=== PATIENT | female | born 1995 | race Caucasian/White ===

== ENCOUNTER → 2023-10-20 | Outpatient (CLI) | payer OTHER, SELFPAY ==
[2023-10-20 17:36] LABS: Vitamin D,25 Hydroxy 35.6 ng/mL
[2023-10-20 17:41] LABS: T4 Free Direct 1.84 ng/dL (0.76-1.46); Thyroid Stim Hormone (TSH) 3.18 uIU/mL (0.358-3.74)
== END | disposition home or self-care (01) ==
LOC: LAB 16:32
PROVIDERS: PCP Family Medicine; Referring Provider Internal Medicine Endocrinology, Diabetes & Metabolism; Visit Provider Internal Medicine Endocrinology, Diabetes & Metabolism
DX: E03.9 Hypothyroidism, unspecified (principal); E55.9 Vitamin D deficiency, unspecified
CPT/HCPCS: 36415; 82306; 84439; 84443

== ENCOUNTER 2024-01-07 14:19 | Emergency (ER) | payer OTHER, SELFPAY ==
[2024-01-07 14:20] VITALS: BP 122/88; PULSE 76; RESP 18; TEMP 36.3; O2SAT 100; BMI 21.9
[2024-01-07 15:09] VITALS: BP 99/68; PULSE 75; RESP 12; O2SAT 99
--- NOTE | 2024-01-07 15:16 | EKG12_ITS ---
Test Reason : CP Blood Pressure : / mmHG Vent. Rate : 066 BPM Atrial Rate : 066 BPM P-R Int : 126 ms QRS Dur : 088 ms QT Int : 436 ms P-R-T Axes : 055 125 023 degrees QTc Int : 457 ms Normal sinus rhythm Right axis deviation Possible Right ventricular hypertrophy Abnormal ECG Confirmed by Edwin Prabhakar ([id number]), news editor CELIA SAGASTUME ([id number]) on 01/08/2024 9:45:40 AM Referred By: Confirmed By:Edwin Prabhakar
--- NOTE | 2024-01-07 15:18 | ED.VIS.CHEST ---
HPI <Mary Pabon RN - Last Filed: 01/07/24 16:46> History of Present Illness Chief Complaint: Chest Pain Informant: patient Onset/Context/Timing Onset: Today Activity at onset: sudden Timing: Continuous Quality: Positive for Pressure Location: Substernal Current Severity: 2/10 Maximum Severity: 2/10 Worsened By: Movement of Arm Relieved By: Rest Narrative Narrative: Patient presents to the ED with sudden onset of midsternal chest pressure upon awakening this morning. Patient also reports shortness of breath x 2 weeks productive cough x 1 week. Patient also reports lightheadedness and dizziness for 1 to 2 months for which she was to see her primary care provider. Reports canceled that appointment due to another commitment. Patient denies nausea, vomiting, or diarrhea. Patient reports chest pressure worse with movement of arms. Reports recent travel to [place] mid November. Denies recent heavy lifting or exercise. Patient also reports occasional palpitations. Patient with history of Matilda's and hypothyroidism. Last thyroid check was September 2023 in which patient reports labs were normal. Patient reports grandmother at 56 from an [place]. Patient denies smoking or alcohol use. Prior Similar Symptoms: No Recent Illness/Hospitalization: No CVD Risk Factors: Negative for Hypertension, Diabetes, Hypercholesterolemia, Family History 1' </=55 or Smoking PE Risk Factors: Negative for Recent Travel/Surgery or Prior DVT or PE PFSH <Mary Pabon RN - Last Filed: 01/07/24 16:46> [facility] Medical History Matilda's disease Hypothyroid Allergy/AdvReac Type Severity Reaction Status Date / Time No Known Allergies Allergy Verified 01/07/24 14:20 Social History (Updated 01/07/24 @ 15:21 by Mary Pabon RN) Smoking Status: Never smoker alcohol intake: never ROS <Mary Pabon RN - Last Filed: 01/07/24 16:46> ROS ED Constitutional Constitutional ED: Denies chills, fever(s), sweats or weight loss Eyes Eyes: Denies none or change in vision Cardiovascular Cardiovascular: Reports as per HPI, chest pain and palpitations Gastrointestinal Gastrointestinal: Denies abdominal pain, constipation, diarrhea, nausea or vomiting Genitourinary Genitourinary ED: Denies dysuria, hematuria or urinary frequency Musculoskeletal Musculoskeletal: Denies arthralgias or myalgias Neurologic Neurologic: Denies headache(s), paresthesias or weakness EXAM <Mary Pabon RN - Last Filed: 01/07/24 16:46> Physical Exam Const Vital Signs: 01/07/24 14:20 01/07/24 15:05 01/07/24 15:09 Temperature 97.3 F L Temperature Source Temporal Pulse Rate 76 75 Respiratory Rate 18 12 Respiratory Effort Normal Blood Pressure 122/88 H 99/68 Blood Pressure Mean 99 78 Pulse Ox 100 99 Oxygen Delivery Method Room Air Room Air 01/07/24 15:35 Temperature Temperature Source Pulse Rate Respiratory Rate Respiratory Effort Blood Pressure Blood Pressure Mean Pulse Ox Oxygen Delivery Method Room Air Positive well nourished and well developed General Appearance ED: well developed and NAD HEENT normocephalic, atraumatic, trauma and tenderness Eyes PERRL Chest Wall inspection of chest normal and palpation of chest normal Chest Narrative: Left lateral chest pressure with movement of arms. Resp normal respiratory effort and clear to auscultation bilaterally Cardio regular rate, regular rhythm, S1 normal heart sound and S2 normal heart sound Peripheral Pulses: pulses 2+ throughout GI normal to inspection, nondistended, normoactive bowel sounds, soft to palpation and non-tender Extremity normal to inspection General Extremety ED: Negative for edema General Extremity: Negative for edema Neuro oriented x3 Sensorium / Orientation: awake and alert Motor Exam: strength 5/5 throughout Psych mental status grossly normal Skin no rashes or lesions noted <Dr. Renny Morton MD - Last Filed: 01/07/24 16:43> Physical Exam Const Vital Signs: 01/07/24 14:20 01/07/24 15:05 01/07/24 15:09 Temperature 97.3 F L Temperature Source Temporal Pulse Rate 76 75 Respiratory Rate 18 12 Respiratory Effort Normal Blood Pressure 122/88 H 99/68 Blood Pressure Mean 99 78 Pulse Ox 100 99 Oxygen Delivery Method Room Air Room Air 01/07/24 15:35 Temperature Temperature Source Pulse Rate Respiratory Rate Respiratory Effort Blood Pressure Blood Pressure Mean Pulse Ox Oxygen Delivery Method Room Air MDM <Mary Pabon RN - Last Filed: 01/07/24 16:46> MDM MDM Narrative Medical decision making narrative: Patient placed on vehicle monitor technician. IV line initiated. Labwork obtained to evaluate for leukocytosis, anemia, and electrolyte derangement. Chest x-ray obtained to evaluate for acute lung pathology, cardiac size, or mediastinal abnormality. D-dimer obtained due to recent travel. EKG obtained to evaluate for cardiac arrhythmia/ischemia. I have personally performed a face to face assessment of the patient and have reviewed the DIVYA Note. I performed a substantive portion of the visit including all aspects of the following. My gould findings include: History is 19-year-old female with left parasternal chest discomfort. No recent exertional chest pain or dyspnea. No cardiac history. She is never had a DVT or PE. She is not on control. She has had recent travel driving to and from [place] within the last month. No leg pain or swelling. No hemoptysis. No recent hospitalization. Exam is [well-appearing 28-year-old female. Vital signs stable afebrile. Pulse ox 100% on room air no hypoxia. HEENT exam unremarkable. Neck nontender no JVD. Lungs clear to auscultation bilaterally. Heart regular rhythm rate about 75 no murmur. She does have reproducible mild left parasternal chest wall tenderness. No ecchymosis or bruising. No subcu air crepitus. No bony deformity. Abdomen soft nontender. Moving all 4 extremities. Calves are nontender that edema or cords. Radial pulses are equal symmetrical. Normal motor strength both upper and lower extremities. Back nontender. Neurologically she is awake and alert with no focal motor deficits.] Medical Decision Making [28-year-old female most likely reproducible musculoskeletal pain. I do not think this will be cardiac in etiology due to her age and health rule out PE due to recent travel. Cardiac workup with a D-dimer.] Other additions or changes: [None] History & Record Review Discussion w/independent historian: Patient Lab Data Labs: Laboratory Results - last 24 hr 01/07/24 01/07/24 15:29 16:00 WBC 5.8 RBC 4.44 Hgb 13.3 Hct 40.1 MCV 90.3 MCH 30.0 MCHC 33.2 RDW Std Deviation 37.2 RDW Coeff of Eris 11.3 L Plt Count 286 MPV 11.2 Immature Gran % (Auto) 0.200 Neut % (Auto) 50.5 Lymph % (Auto) 38.8 Woodson % (Auto) 6.2 Eos % (Auto) 3.3 Baso % (Auto) 1.0 Absolute Neuts (auto) 3.0 Absolute Lymphs (auto) 2.26 Nucleated RBC % 0 D-Dimer Quant (PE/DVT) < 0.27 L Sodium 139 Potassium 3.3 L Chloride 106 Carbon Dioxide 30.0 Anion Gap 3 L BUN 11 Creatinine 1.00 Estim Creat Clear Calc 74.69 Est GFR (MDRD) Af Amer 84 Est GFR (MDRD) Non-Af 70 BUN/Creatinine Ratio 11.0 Glucose 108 H Calcium 8.7 Troponin I High Sens 6 Radiography Diagnostic Testing: Clinical Impression(s) from Imaging Studies Chest X-Ray 01/07/24 15:33 IMPRESSION: Normal x-ray examination of the chest. Electronically Signed: John Cruz MD at 15:41 EST , EKG Initial EKG: Attestation: I personally reviewed and interpreted this EKG as follows: Interpretation: Sinus Rhythm Comments: Sinus rhythm with a rate of 66. No evidence of ACS. Differential Diagnosis Chest pain/SOB: pulmonary embolism and ACS Management Discussion w/another healthcare provider: Other (Dr. Morton, ED provider) Treatment and Re-Evaluation :: Upon reevaluation, patient awake and alert. No acute distress. CBC revealed normal white blood cell count at 5.8 and neutrophils at 50.5%. D-dimer was negative at less than 0.27. Chemistry showed slightly decreased potassium at 3.3 and glucose at 108. High-sensitivity troponin negative at 6. Chest x-ray reviewed and revealed no acute process. Patient to be discharged home with diagnosis of chest wall pain. Instructed to use ice to the area. Also instructed to use ibuprofen or Tylenol for pain and inflammation. Patient should return for worsening symptoms. Patient agreeable with plan. <Dr. Renny Morton MD - Last Filed: 01/07/24 16:43> [facility] Narrative Medical decision making narrative: Patient placed on vehicle monitor technician. IV line initiated. Labwork obtained to evaluate for leukocytosis, anemia, and electrolyte derangement. Chest x-ray obtained to evaluate for acute lung pathology, cardiac size, or mediastinal abnormality. EKG obtained to evaluate for cardiac arrhythmia/ischemia. I have personally performed a face to face assessment of the patient and have reviewed the DIVYA Note. I performed a substantive portion of the visit including all aspects of the following. My gould findings include: History is 19-year-old female with left parasternal chest discomfort. No recent exertional chest pain or dyspnea. No cardiac history. She is never had a DVT or PE. She is not on control. She has had recent travel driving to and from [place] within the last month. No leg pain or swelling. No hemoptysis. No recent hospitalization. Exam is [well-appearing 28-year-old female. Vital signs stable afebrile. Pulse ox 100% on room air no hypoxia. HEENT exam unremarkable. Neck nontender no JVD. Lungs clear to auscultation bilaterally. Heart regular rhythm rate about 75 no murmur. She does have reproducible mild left parasternal chest wall tenderness. No ecchymosis or bruising. No subcu air crepitus. No bony deformity. Abdomen soft nontender. Moving all 4 extremities. Calves are nontender that edema or cords. Radial pulses are equal symmetrical. Normal motor strength both upper and lower extremities. Back nontender. Neurologically she is awake and alert with no focal motor deficits.] Medical Decision Making [28-year-old female most likely reproducible musculoskeletal pain. I do not think this will be cardiac in etiology due to her age and health rule out PE due to recent travel. Cardiac workup with a D-dimer.] Other additions or changes: [None] Lab Data Lab results narrative: CBC normal. White count of 5. H&H 1340. Platelets 286. EKG sinus rhythm rate of 66 no acute signs of NE or ischemia. Chest x-ray normal range. Normal cardiac silhouette. Normal lung ugalde. No infiltrate. No pneumothorax. Normal mediastinum. Chemistries show potassium 3.3. Gap 3. Normal BUN and creatinine. Glucose 108. Troponin normal at 6. D-dimer less than 0.27. Labs: Laboratory Results - last 24 hr 01/07/24 01/07/24 15:29 16:00 WBC 5.8 RBC 4.44 Hgb 13.3 Hct 40.1 MCV 90.3 MCH 30.0 MCHC 33.2 RDW Std Deviation 37.2 RDW Coeff of Eris 11.3 L Plt Count 286 MPV 11.2 Immature Gran % (Auto) 0.200 Neut % (Auto) 50.5 Lymph % (Auto) 38.8 Woodson % (Auto) 6.2 Eos % (Auto) 3.3 Baso % (Auto) 1.0 Absolute Neuts (auto) 3.0 Absolute Lymphs (auto) 2.26 Nucleated RBC % 0 D-Dimer Quant (PE/DVT) < 0.27 L Sodium 139 Potassium 3.3 L Chloride 106 Carbon Dioxide 30.0 Anion Gap 3 L BUN 11 Creatinine 1.00 Estim Creat Clear Calc 74.69 Est GFR (MDRD) Af Amer 84 Est GFR (MDRD) Non-Af 70 BUN/Creatinine Ratio 11.0 Glucose 108 H Calcium 8.7 Troponin I High Sens 6 Radiography Chest X-Ray - ED: 1 View, Read by ED Physician, Read by Radiologist, Normal, Heart, Lungs, Mediastinum, Bony Structures and No Acute Disease Diagnostic Testing: Clinical Impression(s) from Imaging Studies Chest X-Ray 01/07/24 15:33 IMPRESSION: Normal x-ray examination of the chest. Electronically Signed: John Cruz MD at 15:41 EST Reading Location ID and State: [facility] / [place] , Service support , Chest x-ray, portable, single view interpreted by myself and radiologist shows no acute abnormality. Normal cardiac silhouette. Normal lung ugalde. No infiltrate. No pneumothorax. Rhythm Strip Rhythm Strip: Sinus Rhythm Rate: 66 Ectopy: None Discharge Plan Triage Chief Complaint: Chest Pain ED Provider: Renny Morton Dx/Rx/DC Orders Clinical Impression: Acute chest wall pain, Chest pain, Chest wall muscle strain Instructions: ED Chest Wall Strain Primary Care Provider: Tushar Garcia Referrals: Tushar Garcia MD [Primary Care Provider] - 1 Week if not improving Activity Restrictions/Additional Instructions: Motrin and Tylenol for pain. Your labs, chest x-ray and EKG were all unremarkable. No heart attack. No blood clot. Most likely secondary to either inflammation or strain to your chest wall. Ice to your chest wall. Motrin for pain and inflammation and Tylenol for pain. This should improve. Follow-up if not improving. Disposition Disposition: Home, Self Care
--- NOTE | 2024-01-07 15:33 | RAD_ITS ---
STUDY: X-RAY CHEST REASON FOR EXAM: Female, 28 years old. Chest pain TECHNIQUE: Single AP portable view of the chest. COMPARISON: None. FINDINGS: EKG electrodes are seen. The lungs are clear and expanded. There is no demonstrated pleural abnormality. Normal size heart. Normal mediastinum and melody. Normal visualized pulmonary arteries. Normal visualized aortic arch and descending thoracic aorta. Normal visualized thoracic spine. Normal visualized ribs, clavicles, and shoulders. There is no demonstrated abnormality of the visualized soft tissue structures of the upper abdomen. RAD/Chest 1 View (Portable) IMPRESSION: Normal x-ray examination of the chest. Electronically Signed: John Cruz MD at 15:41 EST ,
[2024-01-07 15:50] LABS: Absolute Lymphocyte Count 2.26 X10^3/uL (0.83-4.51); Basophil# 0.06 X10^3/uL; Eosinophil# 0.19 X10^3/uL; Eosinophils% 3.3 % (0-5); Hematocrit 40.1 % (37-47); Hemoglobin 13.3 g/dL (12.0-15.0); Lymphocyte # 2.26 X10^3/ul (0.83-4.51); Lymphocyte % 38.8 % (19-41); Mean Corp Hgb Conc 33.2 g/dL (32-36); Mean Corpuscular Volume 90.3 fL (81-99); Mean Platelet Vol. 11.2 fl (6.2-12.0); Monocyte# 0.36 X10^3/uL; Monocyte% 6.2 % (0-10); NRBC Flagged by Analyzer 0 % (0-5); Neutrophil # 2.95 X10^3/uL (2.7-7.7); Neutrophil % 50.5 % (47-70); Platelet Count 286 K/mm3 (150-450); RBC Distribution Width CV 11.3 % (11.6-14.6); RBC Distribution Width SD 37.2 fl (35.1-43.9); Red Blood Count 4.44 M/mm3 (4.2-5.4); White Blood Count 5.8 K/mm3 (4.4-11.0)
[2024-01-07 16:08] LABS: Anion Gap 3 (5-15); BUN 11 mg/dL (7-18); Calcium,Total 8.7 mg/dL (8.5-10.1); Chloride 106 mmol/L (98-107); EST Glomerular Filtration Rate 70 mL/min (>60); Est Glom Filt Rate - Afr Amer 84 mL/min (>60); Estimated Creatinine Clearance 74.69 ml/min; Glucose 108 mg/dL (74-106); Potassium 3.3 mmol/L (3.5-5.1); Sodium Level 139 mmol/L (136-145); Troponin-I HS 6 pg/mL (3.0-54.0)
[2024-01-07 16:29] LABS: D-Dimer Quantitative (DVT/PE) < 0.27 FEU/ug/m (0.27-0.49)
[2024-01-07 16:59] VITALS: BP 95/67; PULSE 65; RESP 18; TEMP 36.8; O2SAT 100
== END 2024-01-07 16:59 | disposition home or self-care (01) ==
PROVIDERS: Emergency Provider Emergency Medicine; PCP Family Medicine; Visit Provider Emergency Medicine
DX: S29.011A Strain of muscle and tendon of front wall of thorax, initial encounter (principal); R07.89 Other chest pain
CPT/HCPCS: 71045; 80048; 84484; 85025; 85379; 93005; 99284; A4216

== ENCOUNTER → 2024-06-09 | Outpatient (CLI) | payer OTHER, SELFPAY ==
[2024-06-09 13:14] LABS: Absolute Lymphocyte Count 2.05 X10^3/uL (0.83-4.51); Basophil# 0.08 X10^3/uL; Eosinophil# 0.27 X10^3/uL; Eosinophils% 3.5 % (0-5); Hematocrit 41.3 % (37-47); Hemoglobin 13.8 g/dL (12.0-15.0); Lymphocyte # 2.05 X10^3/ul (0.83-4.51); Lymphocyte % 26.2 % (19-41); Mean Corp Hgb Conc 33.4 g/dL (32-36); Mean Corpuscular Hgb 29.9 pg (27.0-32.0); Mean Corpuscular Volume 89.6 fL (81-99); Mean Platelet Vol. 11.2 fl (6.2-12.0); Monocyte# 0.43 X10^3/uL; Monocyte% 5.5 % (0-10); NRBC Flagged by Analyzer 0 % (0-5); Neutrophil # 4.97 X10^3/uL (2.7-7.7); Neutrophil % 63.5 % (47-70); Platelet Count 267 K/mm3 (150-450); RBC Distribution Width CV 11.6 % (11.6-14.6); RBC Distribution Width SD 37.6 fl (35.1-43.9); Red Blood Count 4.61 M/mm3 (4.2-5.4); White Blood Count 7.8 K/mm3 (4.4-11.0)
[2024-06-09 14:01] LABS: ALB/GLOB Ratio 1.2 RATIO (0.9-2.4); AST(SGOT) 17 U/L (15-37); Alanine Aminotransfer ALT/SGPT 20 U/L (13-56); Albumin, Serum 4.4 g/dL (3.2-5.0); Alkaline Phosphatase 44 U/L (45-117); Anion Gap 6 (5-15); BUN 7 mg/dL (7-18); BUN/Creat Ratio 6.7 RATIO (10-20); Chloride 106 mmol/L (98-107); Creatinine, Serum 1.05 mg/dL (0.55-1.02); EST Glomerular Filtration Rate 66 mL/min (>60); Est Glom Filt Rate - Afr Amer 79 mL/min (>60); Globulin 3.7 g/dL (2.2-4.2); Glucose 94 mg/dL (74-106); Potassium 4.2 mmol/L (3.5-5.1); Protein, Total 8.1 g/dL (6.4-8.2); Sodium Level 137 mmol/L (136-145); T4 Free Direct 1.29 ng/dL (0.76-1.46); Thyroid Stim Hormone (TSH) 0.12 uIU/mL (0.358-3.74)
== END | disposition home or self-care (01) ==
PROVIDERS: PCP Family Medicine; Referring Provider Nurse Practitioner Family; Visit Provider Nurse Practitioner Family
DX: Z13.29 Encounter for screening for other suspected endocrine disorder (principal); E06.3 Autoimmune thyroiditis; E03.9 Hypothyroidism, unspecified
CPT/HCPCS: 36415; 80053; 84439; 84443; 85025

== ENCOUNTER → 2024-08-04 | Outpatient (CLI) | payer OTHER, SELFPAY ==
[2024-08-06 10:14] LABS: PROGESTERONE 0.1 ng/mL (.)
[2024-08-11 00:07] LABS: PROLACTIN 8.9 ng/mL (4.8-33.4); Testosterone Free 0.5 pg/mL (0.0-4.2)
== END | disposition home or self-care (01) ==
LOC: LAB 12:24
PROVIDERS: PCP Family Medicine; Referring Provider Nurse Practitioner Women's Health; Visit Provider Nurse Practitioner Women's Health
DX: N97.9 Female infertility, unspecified (principal)
CPT/HCPCS: 36415; 82627; 84144; 84146; 84402; 82626